=== PATIENT | male | born 1975 | race African-American/Black ===

== ENCOUNTER 2023-12-09 18:44 | Emergency (ER) | payer OTHER ==
[~2023-12-09] VITALS: Ht 185.4 cm; Wt 91.0 kg
[2023-12-09 18:47] VITALS: TEMP 98.2; O2SAT 96
[2023-12-09 18:53] VITALS: PULSE 62; RESP 16
[2023-12-09] MEDS ORDERED: IPRATROPIUM BROMIDE (0.02%) 0.5MG/2.5ML NEB HHN STA (18:53)
[2023-12-09] MEDS ORDERED: ALBUTEROL (0.083%) 2.5MG/3ML NEB HHN SCH (19:00)
[2023-12-09 19:18] LABS: HEMATOCRIT. 42.4 % (42.0-52.0); HEMOGLOBIN. 14.2 g/dL (14.0-18.0); MEAN CORPUSCULAR HEMOGLOBIN 27.4 pg (28.0-32.0); MEAN CORPUSCULAR HGB CONC 33.6 g/dL (31.0-37.0); MEAN CORPUSCULAR VOLUME 81.7 fL (80.0-94.0); MEAN PLATELET VOLUME 7.7 fl (7.4-10.4); PLATELET 264 x1000/uL (130-400); RED BLOOD CELL COUNT 5.18 mill/uL (4.7-6.1); RED CELL DISTRIBUTION WIDTH 13.6 % (11.6-14.6); WHITE BLOOD COUNT 5.2 x1000/uL (4.5-11.0)
[2023-12-09 19:21] LABS: CHLORIDE 109 mEq/L (98-107); SODIUM 139 mEq/L (136-145)
[2023-12-09 19:22] LABS: CARBON DIOXIDE 26 mEq/L (21-32)
[2023-12-09 19:23] LABS: CALCIUM 9.5 mg/dL (8.7-10.4); DIFFERENTIAL COMMENT 1
[2023-12-09 19:27] LABS: CREATININE 1.2 mg/dL (0.6-1.3)
[2023-12-09 19:28] LABS: GLUCOSE 90 mg/dL (70-105); UREA NITROGEN BLOOD 14 mg/dL (9-23)
[2023-12-09] MEDS: PREDNISONE 20MG TABLET PO STA (19:39)
[2023-12-09 20:01] LABS: TROPONIN I HIGH SENSITIVITY 4 ng/L (3.0-53)
[2023-12-09 21:15] VITALS: PULSE 60; RESP 16
[2023-12-09 21:22] LABS: PLATELET ESTIMATE NORMAL
[2023-12-09 21:45] VITALS: PULSE 66; RESP 16
[2023-12-09] MEDS ORDERED: P50 MT (22:28)
[2023-12-09] MEDS ORDERED: ALBU6.7H15 INH (22:28)
[2023-12-09] MEDS ORDERED: ALBU2.5V13 NEB (22:28)
[2023-12-09 22:42] VITALS: BP 152/95; PULSE 75; RESP 16
== END 2023-12-09 22:51 | disposition home or self-care (01) ==
LOC: ER 18:44
DX: J45.901 Unspecified asthma with (acute) exacerbation (principal)
CPT/HCPCS: 80048; 83880; 85025; 84484; 36415; 71045; 94640; 93005; 99285; Z7610 ×5; J7512